=== PATIENT | female | born 1975 | race Caucasian/White ===

== ENCOUNTER 2016-08-04 18:20 | Emergency (ER) | payer OTHER ==
[~2016-08-04] VITALS: Ht 170.2 cm; Wt 113.7 kg
[~2016-08-04 18:20] MED LIST: FENTANYL1 EAC5 TD; FLEXERIL10 MG PO; GABAPENTIN100 MG PO; GLUCOPHAGE500 MG PO; IBUPROFEN800 MG PO; MAGIC MOUTHWASH1 ML MM; MOTRIN600 MG PO; MUPIROCIN22 GM TP; Motrin PO; OXYCODONE-APAP1 EACH PO; PERCOCET 5/31 TABLET PO; PREDNISONE10 MG PO; PRENATAL1 EACH PO; Percocet 5/325,Endoc PO; ULTRAM50 MG PO; VALIUM5 MG PO; VICODIN 5-3001 EACH PO
[2016-08-04] MEDS ORDERED: DUEXIS 800-26.1 EACH PO (20:27)
[2016-08-04] MEDS ORDERED: OXYMORPHONE HCL40 MG PO (20:28)
[2016-08-04] MEDS ORDERED: TIZANIDINE HCL4 MG PO (20:28)
[2016-08-04] MEDS ORDERED: OXYCODONE HCL15 MG PO (20:28)
[2016-08-04] MEDS ORDERED: GABAPENTIN300 MG PO (20:29)
[2016-08-04 20:44] VITALS: BP 169/86
== END 2016-08-04 20:46 | disposition home or self-care (01) ==
LOC: EME 18:20
DX: M79.89 Other specified soft tissue disorders (principal); M79.661 Pain in right lower leg; G89.29 Other chronic pain; Z79.891 Long term (current) use of opiate analgesic; F17.200 Nicotine dependence, unspecified, uncomplicated
CPT/HCPCS: 93971; 99281; 99283

== ENCOUNTER 2016-11-30 01:08 | Emergency (ER) | payer OTHER ==
[~2016-11-30] VITALS: Ht 170.2 cm; Wt 110.6 kg
[~2016-11-30 01:08] MED LIST changes: +DUEXIS 800-26.1 EACH PO; +GABAPENTIN300 MG PO; +OXYCODONE HCL15 MG PO; +OXYMORPHONE HCL40 MG PO; +TIZANIDINE HCL4 MG PO
[2016-11-30 03:52] LABS: HEMATOCRIT 35.9 % (36.0-46.0); MCH 29.3 PG (29.0-34.0); MCHC 35.4 G/DL (30.0-36.0); MCV 82.9 FL (83-99); MEAN PLAT.VOLUME 10.3 uM^3 (9.5-12.4); PLATELET COUNT 286 K/uL (156-360); RBC DIS.WIDTH-CV 14.3 % (11.8-14.6); RBC DIS.WIDTH-SD 43.3 % (39-53); RED BLOOD COUNT 4.33 M/uL (3.80-5.20); WHITE BLOOD COUNT 8.1 K/uL (4.1-10.2)
[2016-11-30 04:06] LABS: CHLORIDE 102 mEq/L (99-109); POTASSIUM 2.7 mEq/L (3.7-5.4); SODIUM 139 mEq/L (136-147)
[2016-11-30 04:07] LABS: GLUCOSE 184 mg/dL (70-99)
[2016-11-30 04:09] LABS: ANION GAP 11 MEQ/L (2-14)
[2016-11-30 04:11] LABS: GFR ESTIMATE (CALCULATED) > 59 mL/min/
[2016-11-30 04:12] LABS: UREA NITROGEN (BUN) 9 mg/dL (9-23)
[2016-11-30 04:19] LABS: QUANTITATIVE HCG < 4.0 MIU/ML
[2016-11-30 04:43] LABS: ADD MIUA? NO; BILIRUBIN NEGATIVE; BLOOD NEGATIVE; COLOR YELLOW ((YELLOW)); GLUCOSE (STRIP) 50; KETONES NEGATIVE; LEUKOCYTES NEGATIVE; NITRITE NEGATIVE; PROTEIN (STRIP) NEGATIVE; SPECIFIC GRAVITY 1.011 (1.000-1.030); UCUL ADDED? NO; UROBILINOGEN 0.2 MG/DL (0.2-1.0)
[2016-11-30] MEDS ORDERED: MEDROL DOSEPAK4 MG PO (05:28)
[2016-11-30 05:40] VITALS: BP 178/99
== END 2016-11-30 05:45 | disposition home or self-care (01) ==
LOC: EME 01:08
PROVIDERS: Emergency Medicine
DX: M51.16 Intervertebral disc disorders with radiculopathy, lumbar region (principal); M79.7 Fibromyalgia; E11.9 Type 2 diabetes mellitus without complications; Z79.891 Long term (current) use of opiate analgesic; F17.200 Nicotine dependence, unspecified, uncomplicated; E66.01 Morbid (severe) obesity due to excess calories; Z68.38 Body mass index [BMI] 38.0-38.9, adult; M48.06 Spinal stenosis, lumbar region
CPT/HCPCS: 72148; 80048; 81003; 84702; 85027; 99281; 99284; J1100; J3010

== ENCOUNTER 2016-12-15 21:45 | Emergency (ER) | payer OTHER ==
[~2016-12-15] VITALS: Ht 170.2 cm; Wt 108.6 kg
[~2016-12-15 21:45] MED LIST changes: +MEDROL DOSEPAK4 MG PO
[2016-12-15 22:47] LABS: HEMATOCRIT 36.6 % (36.0-46.0); MCH 29.3 PG (29.0-34.0); MCHC 34.7 G/DL (30.0-36.0); MCV 84.3 FL (83-99); PLATELET COUNT 281 K/uL (156-360); RBC DIS.WIDTH-CV 14.3 % (11.8-14.6); RBC DIS.WIDTH-SD 43.7 % (39-53); RED BLOOD COUNT 4.34 M/uL (3.80-5.20); WHITE BLOOD COUNT 7.3 K/uL (4.1-10.2)
[2016-12-15 22:58] LABS: CHLORIDE 105 mEq/L (99-109); POTASSIUM 3.5 mEq/L (3.7-5.4); SODIUM 138 mEq/L (136-147)
[2016-12-15 23:00] LABS: GLUCOSE 167 mg/dL (70-99)
[2016-12-15 23:01] LABS: ANION GAP 10 MEQ/L (2-14)
[2016-12-15 23:04] LABS: GFR ESTIMATE (CALCULATED) > 59 mL/min/; UREA NITROGEN (BUN) 11 mg/dL (9-23)
[2016-12-15] MEDS ORDERED: FLEXERIL10 MG PO (23:20)
[2016-12-15] MEDS ORDERED: NAPROSYN500 MG PO (23:20)
[2016-12-15] MEDS ORDERED: MEDROL DOSEPAK4 MG PO (23:47)
[2016-12-16 00:02] VITALS: BP 142/75
== END 2016-12-16 00:07 | disposition home or self-care (01) ==
LOC: EME 21:45
PROVIDERS: Emergency Medicine
DX: M54.41 Lumbago with sciatica, right side (principal); F17.200 Nicotine dependence, unspecified, uncomplicated
CPT/HCPCS: 80048; 85027; 93971; 99281; 99284; J1100

== ENCOUNTER 2017-08-14 19:14 | Inpatient (IN) | payer OTHER ==
[~2017-08-14] VITALS: Ht 170.2 cm; Wt 119.0 kg
[~2017-08-14 19:14] MED LIST changes: +NAPROSYN500 MG PO; +OXYMORPHONE HCL30 MG PO; -OXYMORPHONE HCL40 MG PO
[2017-08-14 21:33] LABS: HEMATOCRIT 33.3 % (36.0-46.0); HEMOGLOBIN 11.4 G/DL (11.9-15.5); MCH 27.5 PG (29.0-34.0); MCHC 34.2 G/DL (30.0-36.0); MCV 80.4 FL (83-99); PLATELET COUNT 270 K/uL (156-360); RBC DIS.WIDTH-CV 15.5 % (11.8-14.6); RBC DIS.WIDTH-SD 45.1 % (39-53); RED BLOOD COUNT 4.14 M/uL (3.80-5.20); WHITE BLOOD COUNT 4.1 K/uL (4.1-10.2)
[2017-08-14] MEDS ORDERED: NAPROSYN500 MG PO (21:40)
[2017-08-14 21:44] LABS: CHLORIDE 106 mEq/L (99-109); POTASSIUM 3.7 mEq/L (3.7-5.4); SODIUM 139 mEq/L (136-147)
[2017-08-14 21:46] LABS: GLUCOSE 233 mg/dL (70-99)
[2017-08-14 21:50] LABS: CREATININE 0.6 mg/dL (0.6-1.3); GFR ESTIMATE (CALCULATED) > 59 mL/min/; UREA NITROGEN (BUN) 9 mg/dL (9-23)
[2017-08-14] MEDS ORDERED: LYRICA100 MG PO (22:13)
[2017-08-15] VITALS (7 sets, daily range): BP systolic 133–184; BP diastolic 68–90
[2017-08-15 09:23] LABS: HEMOGLOBIN A1c (GLYCOHEMOGLOB) 8.6 % (Below 5.7)
[2017-08-16 04:00] VITALS: BP 131/60
[2017-08-16 06:43] LABS: BASOPHIL (%) 0.5 % (0-1); EOSINOPHIL (%) 2.9 % (0-5); EOSINOPHIL COUNT 0.2 K/uL (0-0.3); HEMATOCRIT 31.8 % (36.0-46.0); HEMOGLOBIN 10.6 G/DL (11.9-15.5); IMMATURE GRANULOCYTE (%) 0.4 % (0.0-0.7); LYMPHOCYTE (%) 47.1 % (15-42); LYMPHOCYTE COUNT 2.6 K/uL (1.0-2.8); MCH 26.7 PG (29.0-34.0); MCHC 33.3 G/DL (30.0-36.0); MCV 80.1 FL (83-99); MONOCYTE (%) 4.9 % (3-12); MONOCYTE COUNT 0.3 K/uL (0-0.8); NEUTROPHIL (%) 44.2 % (45-76); NEUTROPHIL COUNT 2.4 K/uL (1.8-6.4); PLATELET COUNT 257 K/uL (156-360); RBC DIS.WIDTH-CV 15.3 % (11.8-14.6); RBC DIS.WIDTH-SD 44.8 % (39-53); RED BLOOD COUNT 3.97 M/uL (3.80-5.20); WHITE BLOOD COUNT 5.5 K/uL (4.1-10.2)
[2017-08-16 07:09] LABS: CHLORIDE 107 MEQ/L (99-109); CREATININE 0.5 MG/DL (0.6-1.3); GFR ESTIMATE (CALCULATED) > 59 mL/min/; GLUCOSE 232 mg/dL (70-99); POTASSIUM 3.9 MEQ/L (3.7-5.4); SODIUM 140 MEQ/L (136-147); UREA NITROGEN (BUN) 12 mg/dL (9-23)
[2017-08-16 07:58] VITALS: BP 160/96
[2017-08-16 12:44] VITALS: BP 144/74
[2017-08-16 15:54] VITALS: BP 176/99
[2017-08-16 20:28] VITALS: BP 141/74
[2017-08-16 23:53] VITALS: BP 127/59
[2017-08-17 01:36] LABS: BENZODIAZEPINES, URINE SCREEN POSITIVE (200 ng/mL)
[2017-08-17 03:42] VITALS: BP 130/67
[2017-08-17 07:28] VITALS: BP 141/74
[2017-08-17 11:45] VITALS: BP 133/68
[2017-08-17 17:55] VITALS: BP 154/82
[2017-08-17 20:03] VITALS: BP 159/80
[2017-08-18 01:44] VITALS: BP 145/77
[2017-08-18 04:46] VITALS: BP 145/86
[2017-08-18 07:55] VITALS: BP 131/73
[2017-08-18] MEDS ORDERED: GLIPIZIDE10 MG PO (11:34)
[2017-08-18] MEDS ORDERED: SANTYL30 GM TP (11:35)
[2017-08-18] MEDS ORDERED: BACTRIM,SEPT1 TABLET PO (11:35)
[2017-08-18] MEDS ORDERED: ENDOCET 5-3251 EACH PO (11:36)
[2017-08-18] MEDS ORDERED: LEVEMIR100 UNIT/2 SC (11:39)
[2017-08-18] MEDS ORDERED: GLUCOMETER MC (11:44)
[2017-08-18] MEDS ORDERED: TEST STRIPS MC (11:44)
[2017-08-18] MEDS ORDERED: INSULIN SYRING1 EA53 MC (11:45)
[2017-08-18] MEDS ORDERED: 1ST TIER UNILE1 EAC1 MC (11:45)
[2017-08-18] MEDS ORDERED: ZOFRAN ODT4 MG PO (11:50)
[2017-08-18 11:53] VITALS: BP 129/70
== END 2017-08-18 15:58 | disposition home or self-care (01) | DRG 603 ==
LOC: EME 19:14 → 5SOUTH 08-15 00:06 → EDOF 08-15 00:06 → ENRESERV 08-15 00:07 → 5SOUTH 08-15 01:31 → ENPENDDIS 08-18 12:07 → 5SOUTH 08-18 15:58
PROVIDERS: Hospitalist; Internal Medicine Infectious Disease; Nurse Practitioner Family
DX: L03.113 Cellulitis of right upper limb (principal); S51.011A Laceration without foreign body of right elbow, initial encounter; B95.62 Methicillin resistant Staphylococcus aureus infection as the cause of diseases classified elsewhere; W19.XXXA Unspecified fall, initial encounter; E11.9 Type 2 diabetes mellitus without complications; F11.20 Opioid dependence, uncomplicated; R78.2 Finding of cocaine in blood; G89.29 Other chronic pain; M48.00 Spinal stenosis, site unspecified; F17.210 Nicotine dependence, cigarettes, uncomplicated; E66.01 Morbid (severe) obesity due to excess calories; Z68.41 Body mass index [BMI] 40.0-44.9, adult; Z88.0 Allergy status to penicillin
CPT/HCPCS: 73090; 73130; 73200; 73201; 80048; 80202; 80306 90; 82948; 83036; 83605; 85025; 85027; 87040; 87070; 87075; 87077; 87147; 87186; 87205; 99281; 99285; J1650; J1815; J1885; J2405; J3010; J3370; J7030

== ENCOUNTER 2017-11-29 21:07 | Emergency (ER) | payer OTHER ==
[~2017-11-29] VITALS: Ht 170.2 cm; Wt 120.0 kg
[~2017-11-29 21:07] MED LIST changes: +1ST TIER UNILE1 EAC1 MC; +BACTRIM,SEPT1 TABLET PO; +ENDOCET 5-3251 EACH PO; +GLIPIZIDE10 MG PO; +GLUCOMETER MC; +INSULIN SYRING1 EA53 MC; +LEVEMIR100 UNIT/2 SC; +LYRICA100 MG PO; +SANTYL30 GM TP; +TEST STRIPS MC; +ZOFRAN ODT4 MG PO
[2017-11-29] MEDS ORDERED: MOTRIN800 MG PO (23:48)
[2017-11-30 00:15] VITALS: BP 178/99
== END 2017-11-30 00:19 | disposition home or self-care (01) ==
LOC: EME 21:07
DX: S63.92XA Sprain of unspecified part of left wrist and hand, initial encounter (principal); S60.222A Contusion of left hand, initial encounter; W01.0XXA Fall on same level from slipping, tripping and stumbling without subsequent striking against object, initial encounter; Y93.E1 Activity, personal bathing and showering; E11.9 Type 2 diabetes mellitus without complications; M79.7 Fibromyalgia; F41.9 Anxiety disorder, unspecified; F17.200 Nicotine dependence, unspecified, uncomplicated; Z88.2 Allergy status to sulfonamides; Z88.0 Allergy status to penicillin; Z88.1 Allergy status to other antibiotic agents; Z91.041 Radiographic dye allergy status
CPT/HCPCS: 73130; 99281; 99284